=== PATIENT | male | born 1975 | race Two or more races ===

== ENCOUNTER → 2018-09-21 | Outpatient (CLI) | payer MEDICAID ==
[~2018-09-21] MED LIST: IOVERSOL 350 MG/ML 100 ML VIAL ONE; SODIUM CHLORIDE 0.9% 100 ML ONE
== END | disposition home or self-care (01) ==
LOC: RADMN 08:15
PROVIDERS: ATTEND Internal Medicine Cardiovascular Disease
DX: I77.1 Stricture of artery (principal); I71.2 Thoracic aortic aneurysm, without rupture; I51.7 Cardiomegaly
CPT/HCPCS: 71260; 72193; 74160; J7050; Q9967

== ENCOUNTER 2023-03-21 01:31 | Emergency (ER) | payer MEDICAID ==
[~2023-03-21] VITALS: Ht 165.1 cm; Wt 70.4 kg
[2023-03-21] MEDS ORDERED: METF-1211 PO (01:49)
[2023-03-21] MEDS ORDERED: LEVO100 PO (01:49)
[2023-03-21] MEDS ORDERED: SIMV-261 PO (01:49)
[2023-03-21] MEDS ORDERED: LISI-894 PO (01:49)
[2023-03-21] MEDS ORDERED: ASPI-1444 PO (01:49)
[2023-03-21] MEDS ORDERED: AMLO-258 PO (01:49)
[2023-03-21] MEDS ORDERED: TraMADol HCL 50 MG TABLET PO ONE (02:00)
[2023-03-21] MEDS ORDERED: FLUT16SP NASAL (02:23)
[2023-03-21] MEDS ORDERED: AMOX250C4 PO (02:23)
[2023-03-21 02:29] VITALS: BP 135/84; PULSE 79; RESP 16; TEMP 98.3
== END 2023-03-21 02:40 | disposition home or self-care (01) ==
LOC: EDUNIT# 01:31 → EMS 01:33
DX: H65.91 Unspecified nonsuppurative otitis media, right ear (principal); I10 Essential (primary) hypertension; E78.00 Pure hypercholesterolemia, unspecified; E03.9 Hypothyroidism, unspecified
CPT/HCPCS: 99283